=== PATIENT | male | born 1985 | race American Indian/Alaskan Native ===

== ENCOUNTER 2018-11-17 01:03 | Emergency (ER) | payer MEDICARE ==
--- NOTE | 2018-11-17 03:41 | Emergency Department Report ---
ED ENT HPI - General Chief complaint: Dental/Oral Stated complaint: MOUTH PAIN Time Seen by Provider: 11/17/18 03:40 Source: patient Mode of arrival: Stretcher Limitations: No Limitations - History of Present Illness Initial comments: 33-year-old Afro-[place] male comes to the emergency room for mouth pain on and off for years but more painful since last night. Patient denies any injury denies any tooth pain. Recent is noted to have a right finger cellulitis. -: year(s) (2) Consistency: intermittent Improves with: none Worsens with: swallowing Context- Dental: poor dental care Associated Symptoms: pain with swallowing - Related Data Previous Rx's Medication Instructions Recorded Last Taken Type Cephalexin [Keflex] 500 mg PO BID #20 capsule 11/17/18 Unknown Rx Ibuprofen [Motrin 600 MG tab] 600 mg PO Q8H PRN #15 tablet 11/17/18 Unknown Rx Allergies Allergy/AdvReac Type Severity Reaction Status Date / Time haloperidol [From Haldol] Allergy Hives Verified 11/17/18 04:06 lorazepam [From Ativan] Allergy Swelling Verified 11/17/18 04:06 ziprasidone [From Geodon] Allergy Swelling Verified 11/17/18 04:06 ED Dental HPI - General Chief complaint: Dental/Oral Stated complaint: MOUTH PAIN Time Seen by Provider: 11/17/18 03:40 Source: patient Mode of arrival: Stretcher Limitations: No Limitations - History of Present Illness Initial comments: 33-year-old -[place] male presents to the emergency room complaining of mouth pain that he's had over 2 years. He reports he has taken nothing for pain. Patient denies any chest pain shortness of breathing or nausea no vomiting. It was noted patient has a right hand first index finger that is swollen and appears to be infected. MD complaint: other (off pain) -: year(s) (2) Quality: aching Consistency: intermittent Improves with: none Worsens with: none Context- Dental: poor dental care - Related Data Previous Rx's Medication Instructions Recorded Last Taken Type Cephalexin [Keflex] 500 mg PO BID #20 capsule 11/17/18 Unknown Rx Ibuprofen [Motrin 600 MG tab] 600 mg PO Q8H PRN #15 tablet 11/17/18 Unknown Rx Allergies Allergy/AdvReac Type Severity Reaction Status Date / Time haloperidol [From Haldol] Allergy Hives Verified 11/17/18 04:06 lorazepam [From Ativan] Allergy Swelling Verified 11/17/18 04:06 ziprasidone [From Geodon] Allergy Swelling Verified 11/17/18 04:06 ED Review of Systems ROS: Stated complaint: MOUTH PAIN Other details as noted in HPI Comment: All other systems reviewed and negative Constitutional: denies: chills, fever Eyes: denies: eye pain, eye discharge, vision change ENT: other (mouth pain) Respiratory: denies: cough, shortness of breath, wheezing Cardiovascular: denies: chest pain, palpitations Endocrine: no symptoms reported Gastrointestinal: denies: abdominal pain, nausea, diarrhea Genitourinary: denies: urgency, dysuria Musculoskeletal: denies: back pain, joint swelling, arthralgia Skin: denies: rash, lesions Neurological: denies: headache, weakness, paresthesias ED Past Medical Hx - Past Medical History Previous Medical History?: No - Surgical History Past Surgical History?: No - Social History Smoking Status: Current Every Day Smoker Substance Use Type: None - Medications Home Medications: Home Medications Medication Instructions Recorded Confirmed Last Taken Type Cephalexin [Keflex] 500 mg PO BID #20 capsule 11/17/18 Unknown Rx Ibuprofen [Motrin 600 MG tab] 600 mg PO Q8H PRN #15 tablet 11/17/18 Unknown Rx ED Physical Exam - General Limitations: No Limitations General appearance: alert, in no apparent distress - Head Head exam: Present: atraumatic, normocephalic - Eye Eye exam: Present: normal appearance, EOMI - ENT ENT exam: Present: mucous membranes moist, other (increase mucous from nose and mouth) - Respiratory Respiratory exam: Present: normal lung sounds bilaterally. Absent: respiratory distress - Cardiovascular Cardiovascular Exam: Present: regular rate, normal rhythm. Absent: systolic murmur, diastolic murmur, rubs, gallop - GI/Abdominal GI/Abdominal exam: Present: soft, normal bowel sounds - Neurological Exam Neurological exam: Present: alert, oriented X3 - Psychiatric Psychiatric exam: Present: normal affect, normal mood - Expanded Skin Exam Expanded Distribution of rash: RUE (right hand index) ED Course Vital Signs 11/17/18 11/17/18 01:08 05:32 Temperature 98.6 F Pulse Rate 79 88 Respiratory 18 16 Rate Blood Pressure 122/69 Blood Pressure 122/77 [Left] O2 Sat by Pulse 97 99 Oximetry ED Medical Decision Making - Medical Decision Making Patient has been evaluated by this provider in fast track. Patient be given a penicillin shot and ibuprofen. Patient be discharged home with Keflex and ibuprofen and to follow up with community provider. Critical care attestation.: If time is entered above; I have spent that time in minutes in the direct care of this critically ill patient, excluding procedure time. ED Disposition Clinical Impression: Allergic rhinitis, Cellulitis of finger of right hand Disposition: DC- TO HOME OR SELFCARE Is pt being admited?: No Does the pt Need Aspirin: No Condition: Stable Instructions: Cellulitis (ED) Additional Instructions: Please complete antibiotics as prescribed. Pain medication as needed. Please follow-up with the primary care provider I have listed one below for your convenience. Prescriptions: Cephalexin [Keflex] 500 mg PO BID #20 capsule Ibuprofen [Motrin 600 MG tab] 600 mg PO Q8H PRN #15 tablet PRN Reason: Pain Referrals: ELLIE XIONG MD [Primary Care Provider] - 3-5 Days [facility] [Provider Group] - 3-5 Days
[2018-11-17] MEDS ORDERED: BICILLIN L-A IM ONE (04:08)
[2018-11-17] MEDS ORDERED: IBUPROFEN PO ONE (04:09)
[2018-11-17 05:33] VITALS: BP 122/77
== END 2018-11-17 05:35 | disposition home or self-care (01) ==
LOC: ED 01:03
DX: J30.9 Allergic rhinitis, unspecified (principal); L03.011 Cellulitis of right finger; F17.200 Nicotine dependence, unspecified, uncomplicated; Z88.8 Allergy status to other drugs, medicaments and biological substances
CPT/HCPCS: 96372; 99283; J0561

== ENCOUNTER 2019-09-02 12:27 | Emergency (ER) | payer MEDICARE ==
[2019-09-02 13:01] VITALS: BP 115/69
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
== END 2019-09-02 14:55 | disposition left against medical advice (07) ==
LOC: ED 12:27
DX: M79.604 Pain in right leg (principal); Z04.89 Encounter for examination and observation for other specified reasons
CPT/HCPCS: 99281

== ENCOUNTER 2022-02-11 10:07 | Emergency (ER) | payer MEDICARE ==
[2022-02-11 10:35] VITALS: BP 118/74
[2022-02-11 11:32] LABS: Basophils % (Auto) 0.5 % (0.0-1.8); Eosinophils # (Auto) 0.4 K/mm3 (0.0-0.4); Eosinophils % (Auto) 4.7 % (0.0-4.3); Hematocrit 41.5 % (35.5-45.6); Hemoglobin 13.9 gm/dl (11.8-15.2); Lymphocytes # (Auto) 1.9 K/mm3 (1.2-5.4); Lymphocytes % (Auto) 22.1 % (13.4-35.0); Mean Corpuscular HGB Conc 34 % (32-34); Mean Corpuscular Volume 80 fl (84-94); Monocytes # (Auto) 0.8 K/mm3 (0.0-0.8); Monocytes % (Auto) 9.7 % (0.0-7.3); Platelet Count 181 K/mm3 (140-440); Red Blood Count 5.17 M/mm3 (3.65-5.03)
[2022-02-11 11:54] LABS: BUN/Creatinine Ratio 14; Blood Urea Nitrogen 14 mg/dL (9-20); Calcium 9.9 mg/dL (8.4-10.2); Hemolysis Index 6
[2022-02-11 12:04] LABS: Amphetamine Screen,Urine Negative; Benzodiazepines Screen,Urine Negative; Cannabinoid Screen,Urine Negative; Cocaine Screen,Urine Negative; Methadone Screen,Urine Negative; Opiate Screen,Urine Negative
[2022-02-11 12:10] LABS: Bilirubin,Urine NEG (Negative); Color,Urine Yellow (Yellow)
[2022-02-11 12:11] LABS: Blood,Urine SM (Negative); Protein,Urine <15 mg/dL mg/dL (Negative); Urobilinogen,Urine < 2.0 mg/dL (<2.0)
== END 2022-02-12 02:10 | disposition left against medical advice (07) ==
LOC: ED 10:07
DX: R51.9 Headache, unspecified (principal); Z53.21 Procedure and treatment not carried out due to patient leaving prior to being seen by health care provider
CPT/HCPCS: 36415; 80048; 80307; 80320; 81001; 85025; G0480